=== PATIENT | male | born 1995 | race Caucasian/White ===

== ENCOUNTER 2018-03-10 11:47 | Emergency (ER) | payer OTHER ==
[2018-03-10] MEDS: ALBUTEROL SULFATE 2.5 MG/0.5 ML INH NEB SOLN INH (13:20)
== END 2018-03-10 14:00 | disposition home or self-care (01) ==
LOC: M ED 11:47
DX: T59.91XA Toxic effect of unspecified gases, fumes and vapors, accidental (unintentional), initial encounter (principal); X58.XXXA Exposure to other specified factors, initial encounter; Y92.139 Unspecified place military base as the place of occurrence of the external cause; Y99.1 Military activity
CPT/HCPCS: 71046

== ENCOUNTER 2019-03-24 18:46 | Emergency (ER) | payer OTHER ==
[~2019-03-24] VITALS: Ht 180.3 cm; Wt 102.3 kg
[2019-03-24] MEDS ORDERED: NAPR-855 PO (18:51)
[2019-03-24] MEDS ORDERED: ACET-908 PO (18:51)
--- NOTE | 2019-03-24 19:49 | REP ---
Clinical: Left ankle injury. Technique: AP, lateral, bilateral oblique views of the left ankle. Findings: Soft tissue swelling noted. No acute fracture or dislocation. Joint spaces and ankle mortise are intact. No subcutaneous emphysema or foreign body. Impression: Swelling. No fracture. Electronically Signed by Gurdeep Ziegler MD 03/24/2019 07:39 P
[2019-03-24 21:46] VITALS: BP 132/74
--- NOTE | 2019-03-25 07:39 | REP ---
Left foot four views : There is no fracture or dislocation. Mineralization and joint spaces are normal. There are no calcifications or foreign bodies. Impression: Negative left foot . Electronically Signed by Cyrus Bender MD 03/25/2019 07:31 A
--- NOTE | 2019-03-25 07:40 | REP ---
Clinical: Trauma/fall. Technique: AP and lateral views of the left tibia / fibula. Findings: Tibia and fibula are intact and there is no evidence for acute fracture or dislocation. Joint spaces and surrounding soft tissues are grossly normal. Small densities surrounding the knee are nonspecific and may represent foreign body material. Impression: 1. No acute fracture dislocation. 2. Cannot exclude small amounts of foreign body material surrounding the knee. Electronically Signed by Gurdeep Ziegler MD 03/25/2019 07:32 A
--- NOTE | 2019-03-30 20:41 | ED PDOC ---
Post-Departure Follow-Up ft sosa miranda faxed formal report of left tib fib for fu Galindo Lees MD Mar 30, 2019 20:41
== END 2019-03-24 21:50 | disposition home or self-care (01) ==
LOC: M ED 18:46
DX: S93.402A Sprain of unspecified ligament of left ankle, initial encounter (principal); X50.1XXA Overexertion from prolonged static or awkward postures, initial encounter; Y92.89 Other specified places as the place of occurrence of the external cause; Y93.02 Activity, running; Y99.1 Military activity; Z79.1 Long term (current) use of non-steroidal anti-inflammatories (NSAID)

== ENCOUNTER 2019-11-09 14:18 | Emergency (ER) | payer OTHER ==
[~2019-11-09] VITALS: Ht 180.3 cm; Wt 122.0 kg
[~2019-11-09 14:18] MED LIST: ACET-908 PO; NAPR-855 PO
[2019-11-09] MEDS ORDERED: nyquil (14:30)
--- NOTE | 2019-11-09 15:40 | REP ---
Chest x-ray: Two views. History: Shortness of breath . Comparison study: March 10, 2018 . Findings: The lungs are well inflated and free of infiltrate. The pleural angles are sharp. The heart size is normal. Pulmonary vasculature is not increased. No significant bony abnormality is seen. Impression: Negative chest x-ray. Electronically Signed by Cosmo Boyd MD 11/09/2019 03:31 P
[2019-11-09 17:22] VITALS: BP 129/67
== END 2019-11-09 17:25 | disposition home or self-care (01) ==
LOC: M ED 14:18
DX: J02.9 Acute pharyngitis, unspecified (principal); J06.9 Acute upper respiratory infection, unspecified; B34.9 Viral infection, unspecified